=== PATIENT | female | born 1990 | race Native Hawaiian/Other Pacific Islander ===

== ENCOUNTER 2017-10-08 14:57 | Emergency (ER) | payer OTHER ==
[~2017-10-08] VITALS: Ht 162.6 cm; Wt 81.8 kg
[2017-10-08 15:00] VITALS: BP 123/72; TEMP 98.1
== END 2017-10-08 16:25 | disposition home or self-care (01) ==
LOC: ED 14:57
DX: G43.909 Migraine, unspecified, not intractable, without status migrainosus (principal)
CPT/HCPCS: 81025; 96372; 99283; J1885; J2550